=== PATIENT | male | born 1955 | race Caucasian/White ===

== ENCOUNTER 2021-09-22 16:20 | Emergency (ER) | payer MEDICARE, OTHER, SELFPAY ==
[2021-09-22 16:33] VITALS: PULSE 84; O2SAT 96
--- NOTE | 2021-09-22 16:34 | XR_ITS ---
PROCEDURE INFORMATION: Exam: XR Right Elbow Exam date and time: 09/22/2021 4:34 PM Age: 66 years old Clinical indication: Injury or trauma; Fall; Blunt trauma (contusions or hematomas); Elbow; Right TECHNIQUE: Imaging protocol: XR Right elbow. Views: 1 or 2 views. COMPARISON: No relevant prior studies available. FINDINGS: Bones/joints: There is an extensively comminuted fracture of the distal right humerus. It is centered in the lateral epicondyle. There is a large fracture fragment measuring about 26 x 24 mm that is displaced completely superiorly in front of volar metaphysis. The medial epicondyle and ulna remain fairly well articulated. Moderate joint effusion Soft tissues: Normal. IMPRESSION: Comminuted fracture centered in the lateral epicondyle notable for a completely displaced fragment
--- NOTE | 2021-09-22 16:34 | HMH.EDGENADL ---
ED Disposition Clinical Impression: Humerus distal fracture Qualifiers: Encounter type: initial encounter Fracture type: closed Fracture morphology: other fracture Fracture alignment: displaced Laterality: right Qualified Code(s): S42.491A - Other displaced fracture of lower end of right humerus, initial encounter for closed fracture Disposition: Xfer Short-Term Hosp Condition on Discharge: Good Additional Instructions: Proceed directly to the [facility] emergency department for further evaluation. Referrals: Provider,Referral, [Primary Care Provider] - Time of Disposition: 19:33 - Critical Care Critical Care Time: No Attestation: On 09/22/21, the high probability of a clinically significant, sudden or life threatening deterioration of the following system(s) required my full and direct attention, intervention and personal management. The time I documented below is in addition to time spent performing reported procedures but includes the following listed in this critical care notation. Medical Decision Making - Medical Records Medical records reviewed: Yes: I reviewed the patient's medical records. - Jaime Inquiry Pt receiving controlled substance: No Vital Signs: 09/22/21 16:33 09/22/21 16:35 Temperature 97.9 F Temperature Source Oral Pulse Rate 84 Pulse Rate [Right Radial] 90 Respiratory Rate 18 Blood Pressure [Right Arm] 157/91 H Blood Pressure Mean [Right Arm] 113 Blood Pressure Source [Right Arm] Automatic Cuff Blood Pressure Position [Right Arm] Sitting 02 Sat by Pulse Oximetry 96 95 Oxygen Delivery Method Room Air Orders (Tests/Meds): ED MEDICATIONS Discontinued Medications Generic Name Dose Route Start Last Admin Trade Name Freq PRN Reason Stop Dose Admin Hydrocodone Bitart/Acetaminophen 1 tab 09/22/21 16:51 09/22/21 16:57 Hydrocodone/Apap 5/325 Mg Tablet PO 09/22/21 16:52 1 tab ONCE ONE Administration - Radiology Data #1 Image(s): Elbow Image Reviewed: Yes I reviewed the patient's radiology results, Yes I reviewed the patient's radiology image Preliminary Findings: Abnormal Comminuted fracture centered in the lateral epicondyle notable for a completely displaced fragment - CT Data CT Scan: Other Time Received: 18:[address] Reviewed: Yes: I have reviewed the patient's CT results Preliminary Findings: Abnormal Findings Narrative: Artifact limits exam. A comminuted distal humeral fracture centered in the lateral epicondyle is seen and there is severe dislocation of what appears to be the capitellum. Medical Decision Narrative: 66yo M evaluated for pain to his right elbow. Patient is in no acute distress but he does have significant pain to his extremity. Significantly limited range of motion. He is neurovascularly intact. X-rays are pending at this time. Case discussed with Dr. Decker of orthopedics. Recommend CT of the elbow and discussion with [facility] for possible trauma referral. Case discussed with [facility] who states the patient needs to be evaluated for operative repair however they are unable to evaluate the patient secondary to being at capacity and having IT difficulties today. Patient is from [place] and therefore [facility] was contacted. The patient has been accepted. He is otherwise stable and his is willing to transport him there in their privately owned vehicle. Placed in a long-arm splint with sling for comfort. General Adult HPI - General Stated complaint: R elbow injury Time Seen by Provider: 09/22/21 16:34 Mode of Arrival: Ambulatory Source of Information: Patient - History of Present Illness HPI narrative: 66yo M presents the emergency department after a fall. He denies head strike or LOC. Complains of pain in his right elbow. Patient is right-hand dominant. Denies any other injury. States he is unable to flex/extend about the elbow. Also unable to
[2021-09-22 16:35] VITALS: BP 157/91; PULSE 90; RESP 18; TEMP 36.6; O2SAT 95; BMI 31.1
--- NOTE | 2021-09-22 17:18 | PC.NURSE ---
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
--- NOTE | 2021-09-22 17:23 | CT_ITS ---
PROCEDURE INFORMATION: Exam: CT Right Upper Extremity Without Contrast, Elbow Exam date and time: 09/22/2021 5:23 PM Age: 66 years old Clinical indication: Injury or trauma; Fall; Fracture, traumatic injury; Closed fracture; Elbow; Right; Additional info: Comminuted FX, best images possible, PT was in severe pain and couldn't move arm TECHNIQUE: Imaging protocol: CT of the Right upper extremity without contrast was performed. Exam focused on the elbow. Radiation optimization: All CT scans at this facility use at least one of these dose optimization techniques: automated exposure control; mA and/or kV adjustment per patient size (includes targeted exams where dose is matched to clinical indication); or iterative reconstruction. COMPARISON: CR XR ELBOW RT 2V 09/22/2021 4:32 PM FINDINGS: Bones/joints: Artifact limits exam. The radius appears intact. No definite ulnar fracture. Ulna appears to be in near anatomic articulation with the humerus. Relationship of the radius and ulna to each other is normal. There is a comminuted fracture of the humerus centered in the lateral epicondyle. The fracture is comminuted and intra-articular. There is a fragment that is completely displaced that measures about 26 x 14 mm. It is probably the capitellum. See image 63 of series 1001. It is displaced by about 2.5 cm superiorly and is situated anterior to the distal humeral shaft. Soft tissues: Soft tissue trauma seen about the elbow. IMPRESSION: Artifact limits exam. A comminuted distal humeral fracture centered in the lateral epicondyle is seen and there is severe dislocation of what appears to be the capitellum.
--- NOTE | 2021-09-22 18:31 | PC.NURSE ---
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
--- NOTE | 2021-09-22 19:05 | PC.NURSE ---
KEARA CAPPS speaking with [facility] at this time
--- NOTE | 2021-09-22 19:46 | PC.NURSE ---
Called ER gave report to Terra RUSS.
[2021-09-22 19:51] VITALS: BP 121/81; PULSE 100; RESP 18; TEMP 36.6; O2SAT 99
== END 2021-09-22 19:54 | disposition short-term general hospital (02) ==
PROVIDERS: Emergency Provider Family Medicine
DX: S42.491A Other displaced fracture of lower end of right humerus, initial encounter for closed fracture (principal); W01.0XXA Fall on same level from slipping, tripping and stumbling without subsequent striking against object, initial encounter; Y92.89 Other specified places as the place of occurrence of the external cause
CPT/HCPCS: 29105; 73070; 73200; 99284